=== PATIENT | male | born 1955 | race Caucasian/White ===

== ENCOUNTER 2017-03-04 07:59 | Inpatient (IN) ==
[2017-03-04] MEDS ORDERED: CARDIZEM IV ONE (08:22)
[2017-03-04 08:48] LABS: MANUAL DIFF NEEDED? NO
[2017-03-04 08:51] LABS: BASO% 0.4 % (0.0-0.8); EOS% 1.8 % (0.0-10.0); HEMATOCRIT 48.3 % (42.0-52.0); HEMOGLOBIN 16.4 g/dL (14.0-18.0); LYMPH# 1.11 X1000 (1.2-3.4); LYMPH% 20.5 % (20.5-51.1); MCH 30.9 PG (27-31); MCV 91.1 FL (81-99); MONO# 0.42 X1000 (0.11-0.59); MONO% 7.8 % (1.7-9.3); MPV 11.3 FL (7.4-10.4); NEUT% 69.5 % (42.2-75.2); PLT 168 X1000 (130-400)
[2017-03-04 09:01] LABS: INR 1.05; PROTIME 11.1 Seconds (9.2-11.7); PTT 27.1 Seconds (22.0-36.0)
[2017-03-04 09:21] LABS: ALBUMIN 4.2 g/dL (3.5-5.0); CALCIUM 9.7 mg/dL (8.8-10.2); MAGNESIUM 2.1 mg/dL (1.5-2.7); POTASSIUM 3.7 mmol/L (3.5-5.1); TOTAL BILIRUBIN 0.97 mg/dL (0.20-1.00); TOTAL PROTEIN 7.7 g/dL (6.3-8.3)
--- NOTE | 2017-03-04 09:47 | Diag Imaging Result Doc PS360 ---
EXAM: CHEST-2 VIEWS - 03/04/2017 HISTORY: CP TECHNIQUE: Chest two views COMPARISON: 07/10/2015 FINDINGS: Heart size appears the upper range of normal and stable. There is stable mild tortuosity of the thoracic aorta. The lungs appear clear. There is no pleural effusion or pneumothorax identified. There is thoracic spondylosis or ankylosis noted similar to the prior exam. IMPRESSION: No evidence of acute disease. Electronically signed by Ezequiel Craig 03/04/2017 9:44 AM
[2017-03-04 09:54] LABS: CK INDEX 3.8 (0.0-2.5); CK-MB 7.97 ng/mL (0.0-5.0)
[2017-03-04 11:20] LABS: URINE CULTURE NEEDED? NO; URINE MICRO REVIEW NEEDED? NO; URINE SOURCE CLEAN CATCH
[2017-03-04 11:26] LABS: BILIRUBIN URINE NEGATIVE (NEGATIVE); BLOOD URINE TRACE (NEGATIVE); COLOR YELLOW; GLUCOSE URINE NEGATIVE (NEGATIVE); LEUKOCYTES URINE NEGATIVE (NEGATIVE); NITRITE URINE NEGATIVE (NEGATIVE); PH URINE 7.5; PROTEIN URINE TRACE mg/dL (NEGATIVE); SP GRAVITY URINE 1.009; TURBIDITY URINE CLEAR (CLEAR); UR EPITHELIAL CELLS <10 /HPF (<10); URINE BACTERIA NEGATIVE /HPF; URINE RBC <10 /HPF (<10); URINE WBC <10 /HPF (<10); UROBILINOGEN URINE NORMAL (NORMAL)
--- NOTE | 2017-03-04 11:49 | ED EKG INTERP ---
This chart was entered by Herminia Mckeon Scribe, acting as scribe for Jessie Gallardo MD. EKG Interpretation - EKG Time of EKG reading by physician:: 08:11 EKG Read and Signed by:: Jessie Gallardo EKG Interpretation (*Must complete 3 of following elements*): Abnormal (cannot rule out septal infarct, age undetermined; ST & T wave abnormality, consider lateral ischemia) Rate: 114 Rhythm: atrial fibrillation with rapid ventricular response Comments: voltage criteria for left ventricular hypertrophy This chart was documented by the indicated scribe, (Herminia Mckeon Scribe) and accurately reflects the services I performed and decisions made by me, Jessie Gallardo MD, as attested by the provider's signature.
[2017-03-04 11:50] LABS: UR AMPHETAMINES QUAL NONE DETECTED (NONE DETECT); UR BARBITUATES QUAL NONE DETECTED (NONE DETECT); UR BENZODIAZEPIN QUAL NONE DETECTED (NONE DETECT); UR CANNABINOIDS QUAL NONE DETECTED (NONE DETECT); UR COCAINE QUAL NONE DETECTED (NONE DETECT); UR METHADONE QUAL NONE DETECTED (NONE DETECT); UR OPIATES QUAL NONE DETECTED (NONE DETECT); UR OXYCODONE QUAL NONE DETECTED (NONE DETECT); UR PCP QUAL NONE DETECTED (NONE DETECT)
--- NOTE | 2017-03-04 11:51 | PROVIDER DOCUMENTATION ---
This chart was entered by Herminia Mckeon Scribe, acting as scribe for Jessie Gallardo MD. HPI-Cardiac General - General Chief Complaint: Palpitations Stated Complaint: IRREGULAR HEART BEAT Time Seen by Provider: 03/04/17 08:21 Source: patient Allergies/Adverse Reactions: Patient Allergies Allergy/AdvReac Type Severity Reaction Status Date / Time No Known Allergies Allergy Verified 03/04/17 08:21 Home Medications: Home Medication List Medication Instructions Recorded Confirmed Last Taken Type Aspirin 81 mg PO DAILY #60 chewtab 07/10/15 03/04/17 03/02/17 10:00 Rx Hydrochlorothiazide 12.5 mg PO DAILY 03/04/17 03/04/17 03/02/17 10:00 History Lisinopril 40 mg PO DAILY 03/04/17 03/04/17 03/02/17 10:00 History Metoprolol Succinate 25 mg PO DAILY 03/04/17 03/04/17 03/02/17 10:00 History - History of Present Illness-Cardiac Nature of Presenting Problem: Pt is 61 y/o M presents to the ED with irregular heart beat. Pt states was walking yesterday and check pulse and had an irregular pulse. Pt denies hx of irregular HR or A fib. Pt denies chest pain or SOB. Location: reports: central Quality of Pain: reports: throbbing Severity in ED: mild Onset/Duration: 24 hours ago Timing: improving Context/Activities at Onset: reports: light activity Modifying Factors: improves with: nothing Palpitation Quality: irregular History of arrythmia: reports: none Recent use of:: reports: no stimulants Nitro Today/Relief: reports: no nitro taken today Aspirin Treatment Today: reports: no aspirin today Associated Symptoms: reports: denies symptoms Similar Symptoms Previously?: Yes Recently Seen Here or By Another Healthcare Provider: No Review of Systems - Adult - REVIEW OF SYSTEMS - ADULT Constitutional: reports: no symptoms reported Eyes: reports: no symptoms reported Ears, Nose, Mouth & Throat: reports: no symptoms reported Cardiovascular: reports: irregular heart rate. denies: chest pain, palpitations Respiratory: reports: no symptoms reported Gastrointestinal: reports: no symptoms reported Genitourinary: reports: no symptoms reported Musculoskeletal: reports: no symptoms reported Integumentary: reports: no symptoms reported Neurological: reports: no symptoms reported Psychiatric: reports: no symptoms reported Endocrine: reports: no symptoms reported Hematologic/Lymphatic: reports: no symptoms reported Allergic/Immunologic: reports: no symptoms reported All Other Systems: Reviewed and Negative Past History - Adult - PAST MEDICAL HISTORY-ADULT Review of Records: reports: Nursing Assessment Review, Medications Reviewed, Social history reviewed & non-contributory. Major Childhood Illnesses: reports: denies history Cardiovascular: reports: CAD, CHF, HTN, hyperlipidemia Respiratory: reports: denies history Gastrointestinal: reports: denies history Obstetrical/Gynecological: reports: denies history Genitourinary: reports: denies history Musculoskeletal: reports: denies history Neurological: reports: CVA Endocrine/Immune: reports: denies history Other Conditions: reports: denies history - PRIOR SURGERIES/PROCEDURES Surgical/Procedure History: reports: cardiac stent (2001) - IMMUNIZATION STATUS Childhood Immunizations: See Nurse Assessment Flu Vaccine: See Nurse Assessment - FAMILY HISTORY Family History: reviewed, not pertinent - SOCIAL HISTORY Smoking: denies Substance Use: denies Living Situation: family Physical Exam-General - PHYSICAL EXAM-ADULT Initial Vital Signs Reviewed: Yes - CONSTITUTIONAL General Appearance: appears well, alert, no apparent distress - EYES Eyes: PERRL/EOMI, pink conjunctivae - HEAD, EARS, NOSE, MOUTH & THROAT HENMT: normal ENT inspection - NECK Neck: normal inspection - RESPIRATORY Respiratory: chest non-tender, lungs clear, normal breath sounds - CARDIOVASCULAR Cardiovascular: normal peripheral pulses, other (irregular heart beat) - GASTROINTESTINAL (ABDOMEN) Abdominal Exam: normal bowel sounds, non tender, soft - LYMPHATIC Lymphatic: no adenopathy - MUSCULOSKELETAL Back Exam: normal inspection Extremity: normal range of motion, normal inspection - SKIN Integumentary: normal color, normal turgor - NEUROLOGIC Neurologic: grossly normal - PSYCHIATRIC Psych/Mental Status: normal mood/affect, oriented x 3 Progress - PLAN OF CARE/RESULTS Progress/Plan/Lab Results: Vital Signs - 8 hr 03/04/17 08:11 03/04/17 08:56 03/04/17 09:43 Temperature 98.3 F Pulse Rate 53 L 86 90 Respiratory Rate 18 23 17 Blood Pressure 194/129 139/109 176/120 O2 Sat by Pulse Oximetry 100 97 96 03/04/17 10:51 03/04/17 11:22 Temperature Pulse Rate 83 89 Respiratory Rate 17 18 Blood Pressure 212/120 108/108 O2 Sat by Pulse Oximetry 95 97 Laboratory Results - last 24 hr 03/04/17 03/04/17 03/04/17 08:37 08:37 08:37 WBC 5.41 RBC 5.30 Hgb 16.4 Hct 48.3 MCV 91.1 MCH 30.9 MCHC 34.0 RDW Std Deviation 12.8 Plt Count 168 MPV 11.3 H Immature Gran % (Auto) 0.0 Neut % (Auto) 69.5 Lymph % (Auto) 20.5 Dane % (Auto) 7.8 Eos % (Auto) 1.8 Baso % (Auto) 0.4 Immature Gran # (Auto) 0.00 Neut # (Auto) 3.76 Lymph # (Auto) 1.11 L Dane # (Auto) 0.42 Eos # (Auto) 0.10 Baso # (Auto) 0.02 PT INR PTT (Actin FS) D-Dimer 0.97 H Sodium 141 Potassium 3.7 Chloride 101 Carbon Dioxide 25 Anion Gap 15 BUN 15 Creatinine 1.3 H Estimated GFR/1.73 m2 56 BUN/Creatinine Ratio 12 Glucose 103 Calculated Osmolality 282 Calcium 9.7 Magnesium 2.1 Total Bilirubin 0.97 AST 21 ALT 19 Alkaline Phosphatase 104 Creatine Kinase 211 H Creatine Kinase Index 3.8 H CK-MB (CK-2) 7.97 H Troponin T [id number] Pept Total Protein 7.7 Albumin 4.2 Globulin 3.5 Albumin/Globulin Ratio 1.2 Urine Source Urine Color Urine Turbidity Urine pH Ur Specific [place] Urine Protein Ur Glucose (Stick) Ur Ketones (Stick) Urine Blood Urine Nitrite Urine Bilirubin Urobilinogen Dipstick Urine Leukocytes Urine WBC (Auto) Urine RBC (Auto) U Epithel Cells (Auto) Urine Bacteria (Auto) Urine Opiates Screen Ur Oxycodone Screen Ur Methadone, Qual Ur Barbiturates Screen Ur Phencyclidine Scrn Ur Amphetamines Screen U Benzodiazepines Scrn Urine Cocaine Screen U Cannabinoids Screen 03/04/17 03/04/17 03/04/17 08:37 08:37 08:37 WBC RBC Hgb Hct MCV MCH MCHC RDW Std Deviation Plt Count MPV Immature Gran % (Auto) Neut % (Auto) Lymph % (Auto) Dane % (Auto) Eos % (Auto) Baso % (Auto) Immature Gran # (Auto) Neut # (Auto) Lymph # (Auto) Dane # (Auto) Eos # (Auto) Baso # (Auto) PT 11.1 INR 1.05 PTT (Actin FS) 27.1 D-Dimer Sodium Potassium Chloride Carbon Dioxide Anion Gap BUN Creatinine Estimated GFR/1.73 m2 BUN/Creatinine Ratio Glucose Calculated Osmolality Calcium Magnesium Total Bilirubin AST ALT Alkaline Phosphatase Creatine Kinase Creatine Kinase Index CK-MB (CK-2) Troponin T < 0.010 Pyf-Q-Iqaeoxordtr Pept 878 H Total Protein Albumin Globulin Albumin/Globulin Ratio Urine Source Urine Color Urine Turbidity Urine pH Ur Specific [place] Urine Protein Ur Glucose (Stick) Ur Ketones (Stick) Urine Blood Urine Nitrite Urine Bilirubin Urobilinogen Dipstick Urine Leukocytes Urine WBC (Auto) Urine RBC (Auto) U Epithel Cells (Auto) Urine Bacteria (Auto) Urine Opiates Screen Ur Oxycodone Screen Ur Methadone, Qual Ur Barbiturates Screen Ur Phencyclidine Scrn Ur Amphetamines Screen U Benzodiazepines Scrn Urine Cocaine Screen U Cannabinoids Screen 03/04/17 03/04/17 11:14 11:14 WBC RBC Hgb Hct MCV MCH MCHC RDW Std Deviation Plt Count MPV Immature Gran % (Auto) Neut % (Auto) Lymph % (Auto) Dane % (Auto) Eos % (Auto) Baso % (Auto) Immature Gran # (Auto) Neut # (Auto) Lymph # (Auto) Dane # (Auto) Eos # (Auto) Baso # (Auto) PT INR PTT (Actin FS) D-Dimer Sodium Potassium Chloride Carbon Dioxide Anion Gap BUN Creatinine Estimated GFR/1.73 m2 BUN/Creatinine Ratio Glucose Calculated Osmolality Calcium Magnesium Total Bilirubin AST ALT Alkaline Phosphatase Creatine Kinase Creatine Kinase Index CK-MB (CK-2) Troponin T [id number]-Spercfpbqbz Pept Total Protein Albumin Globulin Albumin/Globulin Ratio Urine Source CLEAN CATCH Urine Color YELLOW Urine Turbidity CLEAR Urine pH 7.5 Ur Specific [place] 1.009 Urine Protein TRACE A Ur Glucose (Stick) NEGATIVE Ur Ketones (Stick) NEGATIVE Urine Blood TRACE A Urine Nitrite NEGATIVE Urine Bilirubin NEGATIVE Urobilinogen Dipstick NORMAL Urine Leukocytes NEGATIVE Urine WBC (Auto) <10 Urine RBC (Auto) <10 U Epithel Cells (Auto) <10 Urine Bacteria (Auto) NEGATIVE Urine Opiates Screen NONE DETECTED Ur Oxycodone Screen NONE DETECTED Ur Methadone, Qual NONE DETECTED Ur Barbiturates Screen NONE DETECTED Ur Phencyclidine Scrn NONE DETECTED Ur Amphetamines Screen NONE DETECTED U Benzodiazepines Scrn NONE DETECTED Urine Cocaine Screen NONE DETECTED U Cannabinoids Screen NONE DETECTED Orders Category Date Time Status Cardiac Monitoring DIRECTED Care 03/04/17 08:13 Active Saline Loc NOW Care 03/04/17 08:13 Active ANGIOGRAM/PULMONARY ARTERIES [CT] Stat Exams 03/04/17 11:32 Ordered CHEST-2 VIEWS [RAD] Stat Exams 03/04/17 08:13 Completed CBC WITH ELECTRONIC DIFF [HEME] Stat Lab 03/04/17 08:37 Completed CK PROFILE [SP CHEM] Stat Lab 03/04/17 08:37 Completed CK PROFILE [SP CHEM] Stat Lab 03/04/17 11:22 Uncollected COMPREHENSIVE METABOLIC PANEL [CHEM] Stat Lab 03/04/17 08:37 Completed D-DIMER [CHEM] Stat Lab 03/04/17 08:37 Completed MAGNESIUM [CHEM] Stat Lab 03/04/17 08:37 Completed PRO B-NATRIURETIC PEPTIDE Stat Lab 03/04/17 08:37 Completed PROTIME WITH INR [COAG] Stat Lab 03/04/17 08:37 Completed PTT [COAG] Stat Lab 03/04/17 08:37 Completed TROPONIN T Stat Lab 03/04/17 08:37 Completed TROPONIN T Stat Lab 03/04/17 11:22 Uncollected UA NIMS W/REFLEX CULT [URINALYSIS] Stat Lab 03/04/17 11:14 Completed URINE DRUG SCREEN Stat Lab 03/04/17 11:14 Completed Diltiazem [Cardizem] Med 03/04/17 08:22 Discontinued 20 mg IV NOW ONE EKG [EKG] Stat Ther 03/04/17 08:13 Ordered EKG [EKG] Stat Ther 03/04/17 11:22 Ordered Result Diagrams: 03/04/17 08:37 03/04/17 08:37 - EKG 1 EKG Interpretation (*Must complete 3 of following elements*): Abnormal Rate: 78 Rhythm: A-fib [place]: normal QRS: normal, LVH ST Wave: non-specific ST changes - XRAY 1 XRAY Study: Chest Impression: Normal XRAY Interpretation: no evidence of acute disease - CONSULTS/PCP/HOSPITALIST Notification #1 *Consult/PCP/Hospitalist*: MONAE Gill Time Discussed: 11:48 Reason/Comments: Dr. Gallardo consulted with MONAE Gill about admit of Pt Consult Disposition: Admit Departure - Departure Date of Disposition Decision: 03/04/17 Time of Disposition Decision: 11:48 DIAGNOSIS: New onset a-fib Disposition: ADMITTED INPATIENT 09 Certified Medical Emergency: Emergent Condition: Stable Referrals and Follow-Ups: Rickey Engle DO [Primary Care Provider] - - Critical Care Note This patient required my direct & personal management of CC.: Yes Total Time (mins): 30 Critical Care Statement: This patient required my direct personal management to treat or rule out processes, the absence of which, could potentiallly result in sudden, clinically significant life or limb threatening deterioration. This chart was documented by the indicated scribe, (Herminia Mckeon Scribe) and accurately reflects the services I performed and decisions made by me, Jessie Gallardo MD, as attested by the provider's signature.
[2017-03-04] MEDS ORDERED: CARDIZEM 100 MG/NS 100 MG/100 ML IVPB IV SCH (12:22)
[2017-03-04] MEDS ORDERED: APRESOLINE IV PRN (12:23)
[2017-03-04] MEDS: PRINIVIL PO SCH (12:30)
[2017-03-04] MEDS ORDERED: TOPROL XL PO SCH (12:30)
[2017-03-04] MEDS ORDERED: HYDROCHLOROTHIAZIDE PO SCH (12:30)
[2017-03-04] MEDS ORDERED: LOVENOX 1 MG/KG SUBQ SCH (12:30)
[2017-03-04 13:02] LABS: FREE T4 1.21 ng/dL (0.93-1.70)
[2017-03-04] MEDS: LOVENOX SUBQ SCH ×2 (13:11→23:50)
[2017-03-04] MEDS ORDERED: CARDENE 20 MG/NS 20 MG/200 ML PIGGYBACK IV SCH (14:00)
--- NOTE | 2017-03-04 14:28 | Diag Imaging Result Doc PS360 ---
EXAM: ANGIOGRAM/PULMONARY ARTERIES - 03/04/2017 HISTORY: Palpitation and elevated d-DIMER TECHNIQUE: With intravenous contrast. Dose reduction protocol. COMPARISON: None. FINDINGS: There are no filling defects identified in the pulmonary arteries. There is no indication of aortic dissection. There is mild cardiomegaly. There is some hazy atelectasis or edema on the bilateral lungs. There is no dense consolidation, pleural effusion, or pneumothorax identified. There are calcified subcarinal mediastinal lymph nodes from old granulomas disease. There are several small a few borderline noncalcified mediastinal lymph nodes. There is thoracic spondylosis noted. Included sections of the upper abdomen show a 2.2 cm cyst, with a few wall calcifications, arising at the upper right kidney. There are smaller cysts at the visualized left kidney, largest of which measures 4 cm. There is a 5-6 mm nonobstructing stone in the mid right kidney. IMPRESSION: No evidence of pulmonary embolism. Mild cardiomegaly. Hazy atelectasis or mild edema in bilateral lungs. No discrete pneumonia. Nonspecific small to borderline mediastinal lymph nodes. Electronically signed by Ezequiel Craig 03/04/2017 2:25 PM
[2017-03-04] MEDS ORDERED: NITROGLYCERIN TOP ONE (16:41)
[2017-03-04] MEDS ORDERED: TYLENOL PO PRN (17:00)
[2017-03-04] MEDS ORDERED: ZOFRAN IV PRN (17:00)
[2017-03-04] MEDS ORDERED: NORCO-7.5 PO PRN (17:00)
[2017-03-04] MEDS ORDERED: NS 1,000 ML IV SCH (17:00)
--- NOTE | 2017-03-04 17:49 | HISTORY AND PHYSICAL ---
PRIMARY CARE PHYSICIAN: Rickey Engle DO. CHIEF COMPLAINT: Palpitations. HISTORY OF PRESENT ILLNESS: Mr. Ramos is a pleasant 61-year-old male who presents to the ER today with palpitations that started yesterday. He states he was out walking about 2 miles when he started just not feeling well. He said he checked his pulse and he thought his heart was racing. So he decided to come to the ER this morning. When he got here, he was found to be in atrial fibrillation. His EKG showed his rate was at 114. He was given a dose of Cardizem 20 mg IV push in which his rate improved. He denied having shortness of breath with this episode. He reports just a little bit. Denies any fever, recent body aches or chills. No nausea, vomiting, diarrhea. States that he has been seeing Dr. Engle frequently. He had dizzy spells in the last 6 months because they want up on his Norvasc he thought was the reason for his dizziness, and so it was decreased down to 5 mg Norvasc and he felt well, and that is why he has been going out and walking. Never had this happen before. This is new onset. States he only takes a baby aspirin 81 mg a day. Chest x-ray showed no acute disease in the ER. A repeat EKG about 3 hours after arrival showed his rate to be atrial fibrillation at 78 with a QTc of 412. PAST MEDICAL HISTORY: 1. Cerebrovascular accident in 2014. No deficits. Myocardial infarction in 2001. He did have 2 cardiac stents placed then. 2. Hypertension. 3. Hyperlipidemia. 4. Coronary artery disease. 5. Sleep apnea. SURGICAL HISTORY: Cardiac stents x2 in 2001. SOCIAL HISTORY: He denies any alcohol, tobacco use or any illicit drug use. FAMILY HISTORY: States his mom had hypertension and heart disease and his father had an [place] and had hypertension as well. REVIEW OF SYSTEMS: Ten point review of systems, no complaints except for those mentioned above in the HPI. ALLERGIES: No known drug allergies. HOME MEDICATIONS: 1. Amlodipine 5 mg p.o. daily. 2. Aspirin 81 mg p.o. daily. 3. Hydrochlorothiazide 12.5 p.o. daily. 4. Lisinopril 40 mg p.o. daily. 5. Toprol 25 mg p.o. daily. PHYSICAL EXAMINATION: VITAL SIGNS: Blood pressure is 186/145, respirations are 18. Heart rate is at 80. O2 saturation 97% on room air. He is found to be irregularly irregular on monitor in atrial fibrillation. GENERAL: Mr. Ramos is a 61-year-old, well-nourished male, who is alert and oriented x4 and able to answer questions appropriately. HEENT: Atraumatic, normocephalic. Pupils equal, round, reactive to light. EOMs intact. Mucous membranes are moist. NECK: Supple. Trachea midline. No JVD noted. No bruits in the neck. CARDIOVASCULAR: S1 and S2 auscultated. Rhythm irregularly irregular. Monitor shows 83 heart rate. No murmurs or rubs noted. PULMONARY: Lung sounds clear and equal throughout with equal chest excursion. Nonlabored, and no evidence of muscle use. GI: Bowel sounds auscultated in all 4 quadrants. ABDOMEN: Soft, nontender, nondistended. No abdominal bruits. NEUROLOGIC: Cranial nerves 2-12 intact. Patient is alert and oriented x4. MUSCULOSKELETAL: No muscle strength deficits noted from his previous cerebrovascular accident. Patient denies any deficits. Muscle strength is equal throughout. EXTREMITIES: Dorsalis pedis and pedal pulses +2 throughout. No clubbing, cyanosis or edema noted. SKIN: Warm, dry, intact. No rashes, bruises, or diaphoresis noted. LABORATORY: White cell count 5.4, hemoglobin 16.4, hematocrit 48, platelets 168 ,000. Sodium 141, potassium 3.7, chloride 101, bicarb 25, BUN 15, creatinine 1.3, glucose 103. IMAGING: Chest x-ray that was completed in the ER showed no acute disease. EKG upon arrival showed atrial fibrillation with RVR at a rate of 114 and a QTc was 435. After Cardizem administration, repeat EKG 3 hours later showed atrial fibrillation at the rate of 78 with a QTc of 412. ASSESSMENT AND PLAN: 1. New-onset atrial fibrillation. We have consulted Dr. Evans. Patient's last echocardiogram was done in June 2015 and he had an estimated EF of 55-60%. We will repeat an echo. He was given 130 mg of subcutaneous Lovenox in the ER. I have ordered that for q.12 hours, monitor serial CKs. 2. Hypertension. Patient states that he runs 200/100 at home. We have initiated a Cardene drip. We ordered serial CKs as well to follow this. 3. Hyperlipidemia. Patient says that he has been followed by Dr. Engle with this. He is unable to take statins due to feeling tired and having muscle aches. We will continue to monitor. Dictated by ODETTE Bella for Michael Lorenzo MD cc: ODETTE Bella MD Thomas E. Lockard, DO pt examined, agree with above APENOT MTDD
[2017-03-04] MEDS: CARDIZEM PO SCH (18:24)
[2017-03-04] MEDS: COREG PO SCH (20:47)
--- NOTE | 2017-03-04 21:10 | CONSULTATION ---
DATE OF CONSULTATION: 03/04/2017 IMPRESSION: 1. Atrial fibrillation with probable onset yesterday afternoon. 2. Prior cerebrovascular accident 2014. 3. Atherosclerotic coronary disease with history of previous myocardial infarction 2001, followed by coronary angioplasty/stents. 4. Hypertension. 5. Hyperlipidemia. 6. Suspected obstructive sleep apnea. RECOMMENDATIONS: 1. Control heart rate with Cardizem as you are doing. 2. Anticoagulation, with Lovenox. 3. Echocardiography. 4. If atrial fibrillation persists, will consider transesophageal echocardiogram cardioversion. 5. Thromboembolic risk related to paroxysmal atrial fibrillation and patient's CHADS-Vasc score of 3, discussed at length with the patient. The rationale for anticoagulation was discussed. HISTORY: This 61-year-old, white male with past history of hypertension, hyperlipidemia, statin intolerance atherosclerotic coronary disease and previous cerebrovascular accident was admitted to the emergency room for further management of atrial fibrillation and rapid ventricular rate. He has been having walking for exercise of late and checking his heart rate before and after exercise. Yesterday afternoon, he started to note some irregular tachycardia in his pulse. He did not really have any palpitations. He had some mild exertional shortness of breath. He awoke this morning and his irregular tachycardia was still there. This prompted him to come on into the emergency room for evaluation where he was found to be in atrial fibrillation with rapid ventricular rate. Rate has been controlled with Cardizem and he has been started on Lovenox. He has had no angina. No orthopnea. He is not aware of any previous atrial fibrillation or irregular tachycardia. He did suffer a cerebrovascular accident in 2014 with right-sided numbness and some difficulty with his balance, which subsequently improved. PAST MEDICAL HISTORY: 1. Hypertension. 2. Hyperlipidemia. 3. Atherosclerotic coronary disease as outlined above. 4. Suspected obstructive sleep apnea. Patient has never had a sleep study done. 5. Prior cerebrovascular accident in 2014 with no significant residual deficit. PAST SURGICAL HISTORY: None. ALLERGIES: No known drug allergies. MEDICATIONS PRIOR TO ADMISSION: As listed. SOCIAL HISTORY: He does not smoke. He is retired from previous work in IT. He drinks a rare glass of wine. FAMILY HISTORY: Negative for premature coronary disease. He is . REVIEW OF SYSTEM: Pulmonary: Negative. Gastrointestinal: Negative. Constitutional: Negative. Remainder of review of systems negative/noncontributory with 14 total systems reviewed. PHYSICAL EXAMINATION: General: Reveals a pleasant, middle-aged male in no distress. Vital Signs: As recorded are stable. HEENT: Extraocular movements appear intact. Mucous membranes are moist. Neck: Supple without jugular venous distention. There are no carotid bruits. Chest: Clear to auscultation. Cardiac: Reveals an irregular rate and rhythm without appreciable murmur or gallop. Abdomen: Soft, nontender. Bowel sounds are normal. Extremities: Without edema. Neurologic: Reveals him to be alert and fully oriented. Speech is fluent. Moves all 4 extremities equally well. Skin: Warm and dry. Psychiatric: Reveals mood to be appropriate. DIAGNOSTIC DATA: ECG monitor shows atrial fibrillation with heart rate of 106 beats per minute. PERTINENT DATA: Twelve lead EKG not available for review. cc: Filemon Evans MD
[2017-03-04] MEDS ORDERED: NS 500 ML IV ONE (23:31)
[2017-03-05] MEDS: CARDIZEM PO SCH ×4 (01:51→21:51)
[2017-03-05 04:56] LABS: MANUAL DIFF NEEDED? NO
[2017-03-05 05:02] LABS: BASO% 0.3 % (0.0-0.8); EOS# 0.07 X1000 (0.0-0.7); HEMATOCRIT 47.6 % (42.0-52.0); HEMOGLOBIN 16.2 g/dL (14.0-18.0); LYMPH# 1.85 X1000 (1.2-3.4); LYMPH% 26.1 % (20.5-51.1); MCH 31.4 PG (27-31); MCV 92.2 FL (81-99); MONO# 0.55 X1000 (0.11-0.59); MONO% 7.8 % (1.7-9.3); MPV 11.6 FL (7.4-10.4); NEUT% 64.8 % (42.2-75.2); PLT 180 X1000 (130-400); RBC 5.16 XMIL (4.7-6.1)
[2017-03-05 05:09] LABS: INR 1.12; PROTIME 11.8 Seconds (9.2-11.7)
[2017-03-05 05:22] LABS: ALBUMIN 3.9 g/dL (3.5-5.0); CALCIUM 9.4 mg/dL (8.8-10.2); MAGNESIUM 2.1 mg/dL (1.5-2.7); POTASSIUM 4.1 mmol/L (3.5-5.1); TOTAL BILIRUBIN 1.19 mg/dL (0.20-1.00); TOTAL PROTEIN 6.9 g/dL (6.3-8.3)
--- NOTE | 2017-03-05 06:01 | EKG Report ---
Test Performed on : 03/05/2017 05:28:34 AM Test Reason : diaphoretic/decreased BP/lightheaded Blood Pressure : / mmHG Vent. Rate : 072 BPM Atrial Rate : 065 BPM P-R Int : 000 ms QRS Dur : 104 ms QT Int : 420 ms P-R-T Axes : 000 021 147 degrees QTc Int : 459 ms Atrial fibrillation. Voltage criteria for left ventricular hypertrophy ST \T\ T wave abnormality, consider lateral ischemia Abnormal ECG When compared with ECG of 04-MAR-2017 22:14, (Unconfirmed) No significant change was found Confirmed by Terry Egan MD ([id number]) on 03/05/2017 10:18:16 AM
[2017-03-05] MEDS: PRILOSEC PO SCH (06:17)
[2017-03-05] MEDS: ASPIRIN PO SCH (08:59)
[2017-03-05] MEDS: PRINIVIL PO SCH (08:59)
[2017-03-05] MEDS: COREG PO SCH (08:59)
--- NOTE | 2017-03-05 09:40 | EKG Report ---
Test Performed on : 03/04/2017 10:14:22 PM Test Reason : CIC. No order in [place]. Blood Pressure : / mmHG Vent. Rate : 074 BPM Atrial Rate : 095 BPM P-R Int : 000 ms QRS Dur : 104 ms QT Int : 400 ms P-R-T Axes : 000 -10 142 degrees QTc Int : 444 ms Atrial fibrillation. Voltage criteria for left ventricular hypertrophy ST \T\ T wave abnormality, consider lateral ischemia Abnormal ECG When compared with ECG of 04-MAR-2017 11:39, (Unconfirmed) No significant change was found Confirmed by Terry Egan MD ([id number]) on 03/05/2017 10:17:59 AM
[2017-03-05] MEDS ORDERED: BETAPACE PO ONE (12:56)
[2017-03-05] MEDS: LOVENOX SUBQ SCH ×2 (12:56→21:51)
[2017-03-05] MEDS ORDERED: HALL'S COUGH LOZENGE MT PRN (13:12)
[2017-03-05] MEDS ORDERED: XYLOCAINE 2% VISCOUS ONE (13:40)
[2017-03-05] MEDS ORDERED: XYLOCAINE 4% TOPICAL SOLUTION ONE (13:40)
[2017-03-05] MEDS ORDERED: SODIUM CHLORIDE 0.9% 20 ML ONE (13:40)
--- NOTE | 2017-03-05 15:09 | PROGRESS NOTE ---
DATE: 03/05/2017 SUBJECTIVE: Patient continues asymptomatic from a cardiovascular standpoint. He has no chest discomfort, dyspnea nor palpitations. OBJECTIVE: Vital Signs: Blood pressure 169/94, heart rate 86 and irregular with ECG monitor showing atrial fibrillation. Oxygen saturation 99% on room air. Chest: Clear to auscultation. Cardiac Exam: Reveals an irregular rate and rhythm without appreciable murmur or gallop. There is no evidence of peripheral edema. Echocardiography is pending. IMPRESSION: 1. Persistent atrial fibrillation. 2. Hypertension with blood pressure elevated. 3. Atherosclerotic coronary disease with history of previous myocardial infarction in 2001 followed by coronary angioplasty/stenting. 4. Hyperlipidemia. RECOMMENDATIONS: 1. Continue heart rate control with Cardizem. 2. Continue anticoagulation with Lovenox. 3. Follow up echocardiography. 4. Given persistence atrial fibrillation will add sotalol 80 mg twice daily and consider transesophageal echocardiography if atrial fibrillation persists. The rationale for this approach along with potential hazards was discussed with the patient. cc: Filemon Evans MD
--- NOTE | 2017-03-05 17:15 | PROGRESS NOTE ---
DATE: 03/05/2017 SUBJECTIVE: The patient is resting comfortably in bed. He has no complaints. No acute events noted overnight. OBJECTIVE: Vital Signs: Temperature 96.8 degrees, blood pressure 158/101, heart rate 67, respirations 20, O2 saturations 99% on room air. General: This is a morbidly obese male, lying in bed, in no acute distress. Head: Normocephalic, atraumatic. Heart: S1, S2 normal. Regular rate and rhythm. Lungs: Clear to auscultation bilaterally. Abdomen: Positive bowel sounds. Soft, nontender, nondistended. Extremities: No edema. No cyanosis. No calf tenderness. Neurological: The patient is alert and oriented x3. LABORATORIES: Review. ASSESSMENT AND PLAN: 1. Atrial fibrillation. Continue with the current management as directed by the phytopathologist. 2. Morbid obesity. Aware. 3. Coronary artery disease with a history of myocardial infarction. Continue on the current cardiac medications. 4. Uncontrolled hypertension. Management as per the [facility]. 5. Acute kidney injury. The patient's creatinine is slightly elevated today. Hold the lisinopril. 6. Will repeat the lipid profile in the morning. cc: Babita Rojas MD
--- NOTE | 2017-03-05 19:06 | Extremity Venous Study ---
PROCEDURE NAME: Venous U/S Bilateral Legs - 03/05/2017 BILATERAL LOWER EXTREMITY VENOUS IMAGING STUDY: REFERRING PHYSICIAN: INTERPRETING PHYSICIAN: Dr. Slater. RESEARCH EDITOR: Nasir. INDICATION: The patient has elevated D-dimer and atrial fibrillation. FINDINGS: Bilateral lower extremity venous images accomplished. The common femoral, superficial femoral, deep femoral, popliteal, posterior tibial, peroneal, and greater saphenous are imaged bilaterally. Doppler is used to evaluate the veins for spontaneity, phasicity, respiratory excursion, and distal augmentation. All veins are compressible. No intraluminal clot is seen. Slight reflux on the right common femoral vein left greater saphenous vein. INTERPRETATION: No evidence of deep or superficial venous thrombosis in either lower extremity veins identified. cc: MD Bridget Kline CRNP
[2017-03-05] MEDS: BETAPACE PO SCH (21:50)
[2017-03-06] MEDS: LOVENOX SUBQ SCH ×2 (00:09→13:28)
[2017-03-06] MEDS: CARDIZEM PO SCH ×3 (04:04→15:26)
[2017-03-06 05:01] LABS: HEMOGLOBIN 15.7 g/dL (14.0-18.0); MCHC 34.1 g/dL (33-37); MCV 93.9 FL (81-99); MPV 11.5 FL (7.4-10.4); RBC 4.9 XMIL (4.7-6.1)
[2017-03-06 05:24] LABS: ALBUMIN 3.8 g/dL (3.5-5.0); CALCIUM 9.7 mg/dL (8.8-10.2); POTASSIUM 3.5 mmol/L (3.5-5.1)
--- NOTE | 2017-03-06 06:09 | EKG Report ---
Test Performed on : 03/06/2017 05:17:11 AM Test Reason : atrial fibrillation Blood Pressure : / mmHG Vent. Rate : 069 BPM Atrial Rate : 069 BPM P-R Int : 000 ms QRS Dur : 104 ms QT Int : 418 ms P-R-T Axes : 000 -09 149 degrees QTc Int : 447 ms Atrial fibrillation. Voltage criteria for left ventricular hypertrophy ST \T\ T wave abnormality, consider lateral ischemia Abnormal ECG When compared with ECG of 05-MAR-2017 05:28, No significant change was found Confirmed by Terry Egan MD ([id number]) on 03/06/2017 9:07:36 AM
[2017-03-06] MEDS: PRILOSEC PO SCH (06:16)
--- NOTE | 2017-03-06 07:48 | ECHO REPORT ---
ORDER DATE: 03/05/2017 INTERPRETING PHYSICIAN: Adonis Polanco MD. CLINICAL INDICATIONS: A 61-year-old male with new onset atrial fibrillation, hypertension, stroke, coronary heart disease. M-MODE MEASUREMENTS: Right ventricle: 3.4 cm. Left ventricle end diastole: 5.4 cm. Left ventricle end systole: 3.8 cm. Posterior wall: 1.4 cm. Interventricular septum: 1.4 cm. Left atrium: 6.4 cm. Aortic root: 4.0 cm. SUMMARY OF 2-DIMENSIONAL IMAGIN. The left ventricular function is normal. Ejection fraction is estimated at 57%. 2. There is wall motion abnormality at the level of the basal inferior wall, distal interventricular septum. The chamber is moderately to significantly enlarged. The patient is obese, weighs 286 pounds. 3. The mitral valve shows calcification of the annulus. It opens normally. Color flow mapping shows a mild degree of regurgitation. Pulsed wave Doppler of mitral inflow shows a single filling wave. 4. The aortic valve shows sclerosis of the cusps. Color flow mapping shows a mild to moderate degree of regurgitation. Maximum gradient across the aortic valve is 14 mmHg, mean gradient is 7 mmHg, 5. The tricuspid valve shows a mild degree of regurgitation. The inferior vena cava is enlarged. The pulmonary pressure is estimated at 33-38 mmHg. 6. The pulmonic valve appears to be normal with a mild degree of regurgitation. 7. There is no pericardial effusion, masses, nor thrombus. 8. The left atrium appears to be moderately enlarged. SUMMARY: In summary, this study shows: 1. Preserved left ventricular systolic function, ejection fraction 57% with segmental wall motion abnormality at the level of the basal inferior wall. 2. A mild degree of mitral and tricuspid regurgitation. 3. Mild to moderate aortic regurgitation. 4. Diastolic function could not be accurately estimated because the patient is in atrial fibrillation. The velocities of the mitral annulus appear to be within normal range. 5. The pulmonary venous flow showed predominance of the diastolic component which is fairly typical of atrial fibrillation. The pulmonary pressure is in the range of 33-38 mmHg. Clinical correlation recommended. 6. The left atrium was noted to be moderately enlarged. cc: MD Bridget Davila CRNP
[2017-03-06] MEDS: BETAPACE PO SCH ×2 (08:49→20:43)
[2017-03-06] MEDS ORDERED: NS 1,000 ML ONE (12:07)
[2017-03-06] MEDS ORDERED: ANESTHESIA PB SET 88 IN 5742 ONE (12:07)
[2017-03-06] MEDS ORDERED: CLAVE TWINSITE 32 IN 11959 ONE (12:07)
[2017-03-06] MEDS: ASPIRIN PO SCH (12:44)
[2017-03-06] MEDS ORDERED: DIPRIVAN 1% ONE (13:13)
[2017-03-06] MEDS ORDERED: APRESOLINE ONE (13:14)
[2017-03-06] MEDS ORDERED: VERSED ONE (13:17)
--- NOTE | 2017-03-06 13:21 | ECHO REPORT ---
ORDER DATE: 03/06/2017 PROCEDURE: Transesophageal echocardiogram. INTERPRETING PHYSICIAN: Dr. Polanco CLINICAL INDICATIONS: Patient with persistent atrial fibrillation. MARTA/ cardioversion recommended by Dr. Evans. Benefits, risks, and complications were discussed with patient in detail. The patient has a history of sleep apnea syndrome and he also has some acromegalic features. On examination, he has MACROGLOSSIA. Patient has facial features HIGHLY SUSPICIOUS FOR ACROMEGALY. DESCRIPTION: The patient came into the cardiac pathology laboratory director in the fasting state. The throat was anesthetized with Hurricaine and viscous lidocaine. He received intravenous propofol and versed under the anesthesia services of Dr. Lund. Once he was adequately sedated, he was intubated successfully. Multiple views of the heart were obtained. During the procedure , the patient converted spontaneously from atrial fibrillation to sinus rhythm. Therefore, there was no need for electrocardioversion. The patient woke up from the effects of anesthesia without deficit. Please notice that Labetalol 10 mg and Hydralazine 10 mg IV were given because of markedly elevated blood pressure. The following is a summary of findings. SUMMARY OF THE IMAGES: 1. The left atrium and appendage were well visualized. They are free of thrombus. Flow velocity within BHASKAR is greater than 50 cm/sec. No spontaneous echo contrast noted. 2. The interatrial septum is intact. 3. Agitated saline was injected. There was no evidence of shunting from right to left nor left to right. 4. The tricuspid valve is normal. Color flow mapping unremarkable. 5. The right ventricle is normal. 6. The left ventricle is normal in size and function. 7. The mitral valve shows mild to moderate regurgitation. 8. The aortic valve has 3 cusps. They open normally. Color flow mapping indicates a mild degree of regurgitation. There is no aortic stenosis. 9. The pulmonic valve looks normal. 10.The descending thoracic aorta showed minimal plaque. 11.There was no pericardial effusion. 12.Pulmonary venous flow shows normal doppler pattern on both right and left pulmonary veins. SUMMARY: In summary, this transesophageal echocardiogram is negative for the presence of intracardiac thrombus. His risk for thromboembolic events is deemed to be low. He converted spontaneously during the procedure to sinus rhythm. At this point in time, the plan is to obtain a MRI of the sella turcica to evaluate for possible pituitary tumor. Further advice will depend on his clinical course. cc: MD Filemon Davila MD MTDD
--- NOTE | 2017-03-06 15:28 | EKG Report ---
Test Performed on : 03/06/2017 2:27:55 PM Test Reason : POST CARDIOVERSION Blood Pressure : / mmHG Vent. Rate : 059 BPM Atrial Rate : 059 BPM P-R Int : 224 ms QRS Dur : 106 ms QT Int : 450 ms P-R-T Axes : 047 -04 117 degrees QTc Int : 445 ms Sinus bradycardia. with 1st degree AV block. Left ventricular hypertrophy with repolarization abnormality Nonspecific ST abnormality Abnormal ECG When compared with ECG of 06-MAR-2017 05:17, Sinus rhythm. has replaced Atrial fibrillation. Confirmed by Jignesh MALDONADO, Terry Powell ([id number]) on 03/06/2017 4:41:16 PM
[2017-03-06] MEDS ORDERED: NORVASC PO ONE (16:04)
--- NOTE | 2017-03-06 16:36 | PROGRESS NOTE ---
DATE: 03/06/2017 SUBJECTIVE: Patient underwent transesophageal echocardiography this morning, which revealed no evidence of intracardiac thrombus. He spontaneously converted back to sinus rhythm before cardioversion was required. He continues without chest symptoms. OBJECTIVE: Vital Signs: Blood pressure 151/74. Heart rate 61 with ECG monitor showing sinus rhythm. Chest: Clear to auscultation. Cardiac: Reveals a regular rate and rhythm, without appreciable murmur or gallop. There is no evidence of peripheral edema. LABORATORY DATA: Includes a BUN of 21 and creatinine 1.5. IMPRESSIONS: 1. Atrial fibrillation. Patient converted back to sinus rhythm after initiation of sotalol. 2. Prior cerebrovascular accident in 2014. 3. Atherosclerotic coronary artery disease with previous myocardial infarction in 2001, followed by coronary angioplasty/stent. Patient continues without angina. 4. Hypertension. 5. Hyperlipidemia. 6. Suspected obstructive sleep apnea. RECOMMENDATIONS: 1. Continue sotalol 80 mg p.o. b.i.d. 2. Switch calcium madeline to amlodipine 5 mg daily. 3. If renal function remains stable, consider addition of angiotensin receptor blocking agent. 4. Given thromboembolic risk with history of hypertension and previous cerebrovascular accident, favor continued anticoagulation. Will initiate Eliquis 5 mg twice daily. cc: Filemon Evans MD
--- NOTE | 2017-03-06 17:36 | PROGRESS NOTE ---
DATE: 03/06/2017 SUBJECTIVE: The patient is resting comfortably in bed. No acute events noted overnight. OBJECTIVE: Vital Signs: Temperature 97.0 degrees, blood pressure 151/74, heart rate 61, respirations 20, O2 saturations 99% on room air. General: This is a morbidly obese male, sitting in bed, in no acute distress. Head: Normocephalic, atraumatic. Heart: S1, S2. Normal. Regular rate and rhythm. Lungs: Clear to auscultation bilaterally. Abdomen: Positive bowel sounds. Soft, nontender, nondistended. Extremities: No edema. No cyanosis. Neurologic: The patient is alert and oriented x3. LABS: Sodium 139, potassium 3.5, chloride 100, CO2 26, BUN 21, creatinine 1.5, glucose 100. ASSESSMENT AND PLAN: 1. Atrial fibrillation. Continue on the current cardiac medications. 2. Acute kidney injury. We will start the patient on gentle IV fluid hydration and repeat the renal profile tomorrow morning. 3. Morbid obesity. Aware. 4. Hypertension. The hat brusher machine was adjusted the patient's antihypertensives. 5. Deep venous thrombosis prophylaxis. The patient is on Eliquis. cc: Babita Rojas MD
[2017-03-06] MEDS: NS 1,000 ML IV SCH (17:54)
[2017-03-06] MEDS: ELIQUIS PO SCH (20:43)
[2017-03-07 05:29] LABS: CALCIUM 9.1 mg/dL (8.8-10.2); POTASSIUM 3.6 mmol/L (3.5-5.1)
[2017-03-07] MEDS: PRILOSEC PO SCH (06:06)
[2017-03-07] MEDS: NS 1,000 ML IV SCH (06:06)
--- NOTE | 2017-03-07 06:33 | EKG Report ---
Test Performed on : 03/07/2017 06:04:18 AM Test Reason : afib Blood Pressure : / mmHG Vent. Rate : 053 BPM Atrial Rate : 053 BPM P-R Int : 230 ms QRS Dur : 104 ms QT Int : 488 ms P-R-T Axes : 015 005 100 degrees QTc Int : 457 ms Sinus bradycardia. with 1st degree AV block. Left ventricular hypertrophy with repolarization abnormality Abnormal ECG When compared with ECG of 06-MAR-2017 14:27, No significant change was found Confirmed by Terry Egan MD ([id number]) on 03/07/2017 1:32:55 PM
[2017-03-07] MEDS: ELIQUIS PO SCH (08:53)
[2017-03-07] MEDS: BETAPACE PO SCH (08:53)
[2017-03-07] MEDS: ASPIRIN PO SCH (08:53)
[2017-03-07] MEDS ORDERED: NORVASC PO SCH (09:00)
--- NOTE | 2017-03-07 11:59 | PROGRESS NOTE ---
DATE: 03/07/2017 SUBJECTIVE: The patient continues with some sinus congestion. He remains asymptomatic from a cardiovascular standpoint. OBJECTIVE: Vital Signs: Blood pressure 168/83, heart rate 51 and regular. ECG monitor showing sinus bradycardia. Neck: There is no significant jugular venous distention. Chest: Clear to auscultation. Cardiac Exam: Reveals a regular bradycardia without appreciable murmur or gallop. Extremities: There is no evidence of peripheral edema. LABORATORY DATA: Remarkable for BUN of 24, creatinine 1.5, potassium 3.6. IMPRESSION: 1. Paroxysmal atrial fibrillation. Patient continues in sinus rhythm on low-dose sotalol. Patient recently on diltiazem and this has been discontinued in favor of amlodipine due to tendency for bradycardia. 2. Previous cerebrovascular accident in 2014. It is noteworthy that patient had brain MRI at that time which reported no abnormalities in the pituitary. 3. Atherosclerotic coronary disease with history of previous myocardial infarction in 2001 followed by coronary angioplasty/stent. Patient continues without angina. 4. Hypertension. 5. Hyperlipidemia. 6. Suspect obstructive sleep apnea, very likely. 7. Patient may very well have chronic sinusitis based on symptoms. RECOMMENDATIONS: 1. Continue sotalol 80 mg twice daily. May need to reduce dose if tendency for bradycardia does not improve. 2. Continue amlodipine 5 mg daily. 3. Once renal function clearly stable, consider addition of angiotensin receptor blocking agent. 4. Given thromboembolic risk with history of hypertension and previous cerebrovascular accident, favor continue on anticoagulation. Eliquis has been initiated. 5. Given that patient had brain MRI in the fall of 2014 which showed no abnormalities of pituitary, repeat brain MRI does not appear to be necessary. Growth hormone levels using glucose tolerance challenge to be considered. cc: Filemon Evans MD
[2017-03-07 12:30] VITALS: BP 161/90
--- NOTE | 2017-03-11 19:30 | DISCHARGE SUMMARY ---
ADMISSION DATE: 03/04/2017 DISCHARGE DATE: 03/07/2017 PRIMARY CARE PHYSICIAN: Dr. Rickey Ogden. FINAL DISCHARGE DIAGNOSES: 1. New onset atrial fibrillation. 2. Stage 3 chronic kidney disease. 3. Morbid obesity. 4. Hypertension. 5. Suspected obstructive sleep apnea. 6. Hyperlipidemia. 7. Coronary artery disease. 8. Suspected Acromegaly CONSULTATIONS REQUESTED DURING THIS HOSPITAL STAY: Cardiology consultation with Dr. Evans. PROCEDURES PERFORMED DURING THIS HOSPITAL STAY: Transesophageal echocardiogram which did not show any evidence of thrombus. HOSPITAL COURSE: Mr. Ramos is a 61-year-old male with a history of hypertension, coronary artery disease and morbid obesity who presented to the ER with a chief complaint of palpitations. Upon arrival, the patient was noted to be in atrial fibrillation with rapid ventricular response. The patient was started on Cardizem drip and admitted to the hospitalist service. Cardiology was also consulted for further assistance. A 2-dimensional echocardiogram was done that revealed an ejection fraction of 57% as well as mild to moderate aortic regurgitation. The patient remained in atrial fibrillation throughout the hospitalization. It was then decided that the patient would benefit from MARTA with cardioversion. While the MARTA was being done. The patient converted to normal sinus rhythm. So a cardioversion was not performed. Upon further examination, it was noted that the patient has a thick neck, enlarged tongue and features consistent with acromegaly. An insulin-like growth factor was sent and it was noted to be elevated at 563 which points to a diagnosis of acromegaly. The patient was also noted to have chronic kidney disease stage III. Prior to admission, the patient was on lisinopril. This was discontinued due to the patient's renal dysfunction. The patient remained in normal sinus rhythm and was started on sotalol and Eliquis. The patient was ultimately cleared for discharge home on 03/07/2017. DISCHARGE MEDICATIONS: 1. Eliquis 5 mg p.o. twice a day. 2. Betapace 80 mg oral twice a day. 3. Aspirin 81 mg p.o. daily. 4. Norvasc 5 mg p.o. daily. DISCHARGE DIET: Low sodium diet. ACTIVITY: As tolerated. DISCHARGE INSTRUCTIONS: The patient will need to follow up with Dr. Engle within 1 week. The patient would likely benefit from a referral to an stranding supervisor for further treatment of his acromegaly. The patient also needs to be referred to a rn transport for a sleep study, because he likely has obstructive sleep apnea. cc: MD Rickey Monet DO MTDD
== END 2017-03-07 13:15 | disposition home or self-care (01) ==
LOC: ED 07:59 → EDIPHOLD 08:00 → SUATTDRO 08:00 → 3S 16:12
PROVIDERS: ATTEND Internal Medicine